=== PATIENT | female | born 1980 | race African-American/Black ===

== ENCOUNTER 2021-03-01 18:17 | Outpatient (CLI) | payer OTHER | END 2021-03-01 18:18 | disposition critical access hospital (66) | LOC: EMS 18:17 | DX: R42 Dizziness and giddiness (principal); R11.2 Nausea with vomiting, unspecified | CPT/HCPCS: A0425; A0427 ==

== ENCOUNTER 2021-03-01 18:43 | Emergency (ER) | payer OTHER ==
[2021-03-01 19:18] LABS: BASOPHILS % (AUTO) 0.7 %; EOSINOPHILS % (AUTO) 0.9 %; HCT - HEMATOCRIT 32.3 % (37.0-47.0); HGB - HEMOGLOBIN 10.6 g/dL (12.0-16.0); LYMPHOCYTES # (AUTO) 1.7 10^3/uL (1.5-3.5); LYMPHOCYTES % (AUTO) 40.7 %; MEAN CORPUSCULAR HEMOGLOBIN 22.6 pg (27.0-31.0); MEAN CORPUSCULAR HGB CONC 32.8 g/dL (32.0-36.0); MEAN PLATELET VOLUME 9.1 fL (7.9-10.8); MONOCYTES # (AUTO) 0.3 10^3/uL (0.0-1.0); MONOCYTES % (AUTO) 7.9 %; NEUTROPHILS # (AUTO) 2.1 10^3/uL (1.5-6.6); NEUTROPHILS % (AUTO) 49.6 %; PLT - PLATELET COUNT 358 10^3/uL (130-450); RED BLOOD COUNT 4.68 10^6/uL (4.20-5.40); RED CELL DISTRIBUTION WIDTH 19.2 % (12.0-15.0); WHITE BLOOD COUNT 4.3 x10^3/uL (4.8-10.8)
--- NOTE | 2021-03-01 19:21 | ED Physician Documentation ---
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 Manuel at [facility], presents with sudden onset dizziness, circumferential chest tightness, and 2 episodes of nbnb n/v occurring just prior to arrival, with CP 6 or 7/10 and sudden onset, constant, quality of "tightness" wrapping all the way around the chest, a/w anxiety, lasting about 10 min per her report and 40 min per her 's report. it has now resolved. patient took 325 asa then called ems who gave her 4mg zofran with improvement. patient is now asymptomatic as long as she stays still but becomes dizzy if she tries to stand. Note that she felt normal earlier in the day and went to work at her job as a [employer]. denies fever, diarrhea, abd pain, back pain. Review of Systems Ten Systems: 10 systems reviewed and negative Cardiac: reports: Chest pain / pressure GI: reports: Nausea, Vomiting (nbnb). denies: Abdominal Pain, Diarrhea Neurologic: reports: Other (dizziness) PD PAST MEDICAL HISTORY - Past Medical History Past Medical History: Yes Cardiovascular: Other - Past Surgical History Past Surgical History: Yes Cardiovascular: Other - Present Medications Home Medications: Ambulatory Orders Medication Instructions Recorded Confirmed Ondansetron Odt [Zofran Odt] 4 mg TL Q6H PRN #10 tablet 03/01/21 - Allergies Allergies/Adverse Reactions: Allergies Allergy/AdvReac Type Severity Reaction Status Date / Time acyclovir Allergy Unknown Verified 03/01/21 18:53 chlorhexidine Allergy Itching Verified 03/01/21 18:53 - Social History Does the pt smoke?: No Smoking Status: Never smoker Does the pt drink ETOH?: No Does the pt have substance abuse?: No - Immunizations Immunizations are current?: Yes PD ED PE NORMAL - Vitals Vital signs reviewed: Yes - General General: Alert and oriented X 3, No acute distress, Well developed/nourished - HEENT HEENT: Atraumatic, PERRL, EOMI - Neck Neck: Supple, no meningeal sign - Cardiac Cardiac: RRR - Respiratory Respiratory: No respiratory distress, Clear bilaterally - Abdomen Abdomen: Non tender, Non distended - Derm Derm: Normal color, Warm and dry - Extremities Extremities: No deformity - Neuro Neuro: Alert and oriented X 3 - Psych Psych: Normal mood, Normal affect Results - Vitals Vitals: Vital Signs - 24 hr 03/01/21 03/01/21 03/01/21 18:54 19:08 19:44 Temperature 98.6 C H 37.0 C Heart Rate 72 71 72 Heart Rate [ Sitting] Heart Rate [ Standing] Heart Rate [ Supine] Respiratory 18 18 18 Rate Blood Pressure 123/62 143/91 H 116/79 Blood Pressure [Sitting] Blood Pressure [Standing] Blood Pressure [Supine] O2 Saturation 98 99 98 03/01/21 03/01/21 03/01/21 20:00 20:28 20:29 Temperature Heart Rate 71 Heart Rate [ 72 Sitting] Heart Rate [ 80 Standing] Heart Rate [ 70 Supine] Respiratory 17 Rate Blood Pressure 118/72 Blood Pressure 136/78 H [Sitting] Blood Pressure 126/82 H [Standing] Blood Pressure 113/75 [Supine] O2 Saturation 99 03/01/21 03/01/21 20:30 21:00 Temperature Heart Rate 72 73 Heart Rate [ Sitting] Heart Rate [ Standing] Heart Rate [ Supine] Respiratory 18 17 Rate Blood Pressure 126/72 118/71 Blood Pressure [Sitting] Blood Pressure [Standing] Blood Pressure [Supine] O2 Saturation 98 98 Oxygen O2 Source Room air - EKG (time done) 1855 Rate: Rate (enter#) (71) Rhythm: NSR Intervals: LBBB (incomplete LBBB and LVH c/w mahaim fibre tachycardia pattern. no previous available) Ischemia: Other (no STEMI) - Labs Labs: Microbiology 03/01/21 19:56 Occult Blood - Final Stool Laboratory Tests 03/01/21 03/01/21 03/01/21 19:14 19:14 19:14 WBC 4.3 L RBC 4.68 Hgb 10.6 L Hct 32.3 L MCV 69.0 L MCH 22.6 L MCHC 32.8 RDW 19.2 H Plt Count 358 MPV 9.1 Neut # (Auto) 2.1 Lymph # (Auto) 1.7 [place] # (Auto) 0.3 Eos # (Auto) 0.0 Baso # (Auto) 0.0 Absolute Nucleated RBC 0.00 Nucleated RBC % 0.0 Manual Slide Review Indicated WBC Morphology NORMAL APPEARANCE Platelet Estimate NORMAL (130-450,000) Platelet Morphology NORMAL APPEARANCE RBC Morph Micro Appear 1+ HYPOCHROMASIA Sodium 138 Potassium 4.1 Chloride 105 Carbon Dioxide 24 Anion Gap 9.0 BUN 11 Creatinine 0.9 Estimated GFR (MDRD) 70 L Glucose 108 H Calcium 9.9 Total Bilirubin 1.0 AST 27 ALT 27 Alkaline Phosphatase 45 Troponin I High Sens < 2.3 L Total Protein 7.7 Albumin 4.3 Globulin 3.4 Albumin/Globulin Ratio 1.3 Lipase 28 Urine HCG, Qual 03/01/21 20:10 WBC RBC Hgb Hct MCV MCH MCHC RDW Plt Count MPV Neut # (Auto) Lymph # (Auto) [place] # (Auto) Eos # (Auto) Baso # (Auto) Absolute Nucleated RBC Nucleated RBC % Manual Slide Review WBC Morphology Platelet Estimate Platelet Morphology RBC Morph Micro Appear Sodium Potassium Chloride Carbon Dioxide Anion Gap BUN Creatinine Estimated GFR (MDRD) Glucose Calcium Total Bilirubin AST ALT Alkaline Phosphatase Troponin I High Sens Total Protein Albumin Globulin Albumin/Globulin Ratio Lipase Urine HCG, Qual NEGATIVE PD MEDICAL DECISION MAKING - ED course ED course: 40yF with prior cardiac history p/w cp, n/v. PERC negative. doubt aortic dissection given BL equal pulses, and asymptomatic at present. will obtain cardiac workup, reevaluate. note that patient had anemia on labwork. she has known history of iron deficiency anemia and usually gets annual iron transfusions but missed this year due to covid. 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 denies rectal bleeding. SHEA brown stool. patient has colonoscopy scheduled this month. d/w Dr. Silveira, cards EP at [facility]. nuclear stress january 2018 totally normal. previous ekg 05/28/20 nsr with short PA with qrs 118. no classic LBBB but it is slightly wider than normal, and LBBB is c/w mahaim fibre tachycardia. Sounds like low risk CP. Recommend to have Dr. Manuel see her in office soon. Departure - Departure Disposition: 01 Home, Self Care Clinical Impression: Chest pain Condition: Good Instructions: ED Chest Pain Atypical Unkn Cause Prescriptions: Ondansetron Odt [Zofran Odt] 4 mg TL Q6H PRN #10 tablet PRN Reason: Nausea / Vomiting Comments: You were seen in the emergency department for chest pain, lightheadedness, and nausea. Your lab work found some mild anemia and your EKG shows a new incomplete left bundle branch block. I discussed with Dr. Silveira, the last inserter on- call for [facility] and he is recommending that you follow-up with Dr. Taylor in clinic this week. Please return to the emergency department immediately if you have any new or worsening symptoms or other concerns.
[2021-03-01 19:37] LABS: ALBUMIN 4.3 g/dL (3.2-5.5); ALBUMIN/GLOBULIN RATIO 1.3 (1.0-2.2); CALCIUM 9.9 mg/dL (8.5-10.3); CREATININE 0.9 mg/dL (0.4-1.0); POTASSIUM 4.1 mmol/L (3.5-5.0); TOTAL PROTEIN 7.7 g/dL (6.7-8.2)
[2021-03-01 20:00] LABS: PLATELET ESTIMATE, MANUAL NORMAL (130-450,000) (NORMAL); PLATELET MORPHOLOGY NORMAL APPEARANCE (NORMAL); SLIDE REVIEW? Indicated
--- NOTE | 2021-03-01 20:00 | XRAY Report ---
PROCEDURE: Chest 1 View X-Ray INDICATIONS: Chest pain TECHNIQUE: One view of the chest was acquired. COMPARISON: None FINDINGS: Surgical changes and devices: None. Lungs and pleura: No pleural effusions or pneumothorax. Lungs are clear. Mediastinum: Mediastinal contours appear normal. Heart size is normal. Bones and chest wall: No suspicious bony lesions. Overlying soft tissues appear unremarkable. IMPRESSION: No acute cardiopulmonary disease process. Reviewed by: Estefany Tapia MD, PhD on 03/01/2021 7:59 PM PDT Approved by: Estefany Tapia MD, PhD on 03/01/2021 7:59 PM PDT Station ID: [id number]
[2021-03-01 20:01] LABS: WBC MORPHOLOGY (MULTIPLE) NORMAL APPEARANCE (NORMAL)
[2021-03-01 20:20] LABS: HCG UR QUAL NEGATIVE
[2021-03-01] MEDS: LACTATED RINGERS 1,000 ML IV STA (20:28)
[2021-03-01 21:31] VITALS: BP 120/72
== END 2021-03-01 21:30 | disposition home or self-care (01) ==
LOC: ED 18:43
DX: R07.9 Chest pain, unspecified (principal); D64.9 Anemia, unspecified
CPT/HCPCS: 36415; 71045; 80053; 81025; 82272; 83690; 84484; 85025; 93005; 96360; 99284; J7120; 82274